=== PATIENT | female | born 1985 | race Caucasian/White ===

== ENCOUNTER 2019-10-07 16:39 | Inpatient (IN) ==
[~2019-10-07 16:39] MED LIST: *HR* FentaNYL (PF) 100 MCG/2 ML VIAL ONE; *HR* Morphine Sulfate/PF 10 MG/10 ML AMPUL ONE; *HR* OxyCODONE/APAP 5/325 TABLET PO PRN; *HR* Oxytocin 10 UNIT/ML VIAL IM ONE; *HR* Phenylephrine 10 MG/ML VIAL ONE; CeFAZolin 2,000 MG/50 ML BAG IVPB ONE; EPHEDrine 50 MG/ML VIAL ONE; Famotidine 20 MG/2 ML VIAL IVP ONE; Ibuprofen 400 MG TABLET PO PRN; Metoclopramide 10 MG/2 ML VIAL IVP ONE; Morphine Sulfate 2 MG/ML SYRINGE IVP PRN; Naloxone 0.4 MG/ML INJ IVP PRN; Ondansetron 4 MG/2 ML VIAL IVP PRN; Ondansetron 4 MG/2 ML VIAL ONE; Oxytocin 20 units/ LR 1000 mL 20 UNIT/1,000 ML BAG IVC ONE; Ringers Solution, Lactated 1,000 ML IVC ONE; Ringers Solution, Lactated 1,000 ML IVC SCH
[2019-10-07] MEDS: Oxytocin 20 units/ LR 1000 mL 20 UNIT/1,000 ML BAG IVC SCH ×2 (16:41→20:00)
[2019-10-07] MEDS ORDERED: *HR* HYDROmorphone (PF) 1 MG/ML SYRINGE IVP PRN (16:58)
[2019-10-07] MEDS ORDERED: Acetaminophen IV 1,000 MG/100 ML INFUS..BTL IVPB ONE (17:02)
[2019-10-07 17:36] LABS: Basophils % 0.1 %; Eosinophils # 0.1 K/mcL (0.0-0.6); Eosinophils % 0.6 %; Hematocrit 33.9 % (35.3-44.9); Hemoglobin 11.5 g/dL (11.5-15.4); Immature Granulocytes % 0.8 % (0-4); Lymphocytes % 11.1 %; Mean Corpuscular HGB Conc 33.9 g/dL (31.6-35.5); Mean Corpuscular Hemoglobin 32.5 pg (28.0-33.3); Mean Corpuscular Volume 95.8 fL (83.0-100.0); Mean Platelet Volume 10.7 fL (9.4-12.4); Monocytes # 0.8 K/mcL (0.0-1.3); Monocytes % 8.7 %; Neutrophils # 6.8 K/mcL (1.6-8.9); Platelet Count 269 K/mcL (140-400); Red Blood Count 3.54 M/mcL (3.82-4.97); Red Cell Distribution Width 14.2 % (11.5-14.5); Segmented Neutrophils % 78.7 %; White Blood Count 8.6 K/mcL (4.3-11.1)
[2019-10-07] MEDS ORDERED: Naloxone 0.4 MG/ML INJ IVP PRN (21:40)
[2019-10-07] MEDS ORDERED: Rho Immune Globulin 1,500 UNIT SYRINGE IM ONE (21:40)
[2019-10-07] MEDS ORDERED: Ringers Solution, Lactated 1,000 ML IVC SCH (21:40)
[2019-10-07] MEDS ORDERED: Metoclopramide 10 MG/2 ML VIAL IVP PRN (21:40)
[2019-10-07] MEDS ORDERED: Sennosides 8.6 MG TABLET PO PRN (21:40)
[2019-10-07] MEDS ORDERED: Ondansetron 4 MG/2 ML VIAL IVP PRN (21:40)
[2019-10-07] MEDS ORDERED: Oxytocin 20 units/ LR 1000 mL 20 UNIT/1,000 ML BAG IVC SCH ×2 (21:40)
[2019-10-07] MEDS ORDERED: Simethicone 80 MG TAB.CHEW PO PRN (21:40)
[2019-10-07 21:56] LABS: Amphetamine Screen,Urine Negative ng/mL (Cutoff=1000); Barbiturate Screen,Urine Negative ng/mL (Cutoff=200); Benzodiazepines Screen,Urine Negative ng/mL (Cutoff=200); Cannabinoid Screen,Urine Negative ng/mL (Cutoff = 50); Cocaine Screen,Urine Negative ng/mL (Cutoff= 300); Opiate Screen,Urine Negative ng/mL (Cutoff=300); Phencyclidine Screen,Urine Negative ng/mL (Cutoff=25)
[2019-10-07] MEDS: *HR* OxyCODONE/APAP 5/325 TABLET PO PRN (22:23)
[2019-10-07] MEDS: Ibuprofen 600 MG TABLET PO PRN (22:24)
[2019-10-07] MEDS: cephALEXin 500 MG CAPSULE PO SCH (22:29)
[2019-10-08] MEDS: *HR* OxyCODONE/APAP 5/325 TABLET PO PRN ×4 (02:19→18:01)
[2019-10-08] MEDS: Ibuprofen 600 MG TABLET PO PRN ×3 (05:13→20:48)
[2019-10-08 06:55] LABS: Basophils % 0.2 %; Eosinophils % 0.3 %; Hematocrit 21.5 % (35.3-44.9); Immature Granulocytes % 0.7 % (0-4); Mean Corpuscular HGB Conc 33.5 g/dL (31.6-35.5); Mean Corpuscular Volume 95.6 fL (83.0-100.0); Mean Platelet Volume 10.5 fL (9.4-12.4); Monocytes # 0.8 K/mcL (0.0-1.3); Monocytes % 7.8 %; Neutrophils # 8.3 K/mcL (1.6-8.9); Platelet Count 239 K/mcL (140-400); Red Blood Count 2.25 M/mcL (3.82-4.97); White Blood Count 10.2 K/mcL (4.3-11.1)
[2019-10-08 07:00] LABS: Hemoglobin 7.2 g/dL (11.5-15.4)
[2019-10-08] MEDS: cephALEXin 500 MG CAPSULE PO SCH ×3 (09:05→20:40)
[2019-10-08] MEDS: Prenatal Vit/FA 1 EACH TABLET PO SCH (09:05)
[2019-10-08] MEDS: metroNIDAZOLE 500 MG TABLET PO SCH ×2 (09:05→20:41)
[2019-10-08] MEDS ORDERED: Rho Immune Globulin 1,500 UNIT SYRINGE IM ONE (20:35)
[2019-10-09] MEDS: *HR* OxyCODONE/APAP 5/325 TABLET PO PRN ×5 (01:08→21:44)
[2019-10-09] MEDS: Ibuprofen 600 MG TABLET PO PRN ×3 (05:24→18:47)
[2019-10-09] MEDS: metroNIDAZOLE 500 MG TABLET PO SCH ×2 (07:32→13:26)
[2019-10-09] MEDS: Prenatal Vit/FA 1 EACH TABLET PO SCH (07:32)
[2019-10-09] MEDS: cephALEXin 500 MG CAPSULE PO SCH ×2 (07:32→13:25)
[2019-10-09 07:54] LABS: Basophils % 0.1 %; Mean Corpuscular HGB Conc 32.5 g/dL (31.6-35.5); Mean Platelet Volume 10.1 fL (9.4-12.4); Red Cell Distribution Width 14.3 % (11.5-14.5)
[2019-10-09 07:56] LABS: Eosinophils # 0.1 K/mcL (0.0-0.6); Eosinophils % 1.1 %; Hematocrit 16.9 % (35.3-44.9); Immature Granulocytes % 1.2 % (0-4); Lymphocytes # 1.2 K/mcL (0.6-4.6); Mean Corpuscular Hemoglobin 31.8 pg (28.0-33.3); Mean Corpuscular Volume 97.7 fL (83.0-100.0); Monocytes # 0.7 K/mcL (0.0-1.3); Monocytes % 7.9 %; Neutrophils # 6.4 K/mcL (1.6-8.9); Platelet Count 224 K/mcL (140-400); Red Blood Count 1.73 M/mcL (3.82-4.97); Segmented Neutrophils % 75.7 %; White Blood Count 8.5 K/mcL (4.3-11.1)
[2019-10-09 08:03] LABS: Hemoglobin 5.5 g/dL (11.5-15.4)
[2019-10-09] MEDS ORDERED: Isovue-370 500 ML BOTTLE IVP ONE (08:09)
[2019-10-09 08:50] LABS: Platelet Estimate Normal (Normal)
[2019-10-09 09:19] LABS: eGFR For African Americans > 60 (> 60); eGFR For Non-African Americans > 60 (> 60)
[2019-10-09] MEDS ORDERED: 0.9 % Sodium Chloride 500 ML ONE (11:27)
[2019-10-09] MEDS ORDERED: 0.9 % Sodium Chloride 1,000 ML ONE (16:47)
[2019-10-09 22:16] LABS: Basophils % 0.1 %; Eosinophils # 0.1 K/mcL (0.0-0.6); Hemoglobin 9.4 g/dL (11.5-15.4); Immature Granulocytes % 1.8 % (0-4); Lymphocytes # 1.1 K/mcL (0.6-4.6); Lymphocytes % 10.5 %; Mean Corpuscular HGB Conc 34.8 g/dL (31.6-35.5); Mean Corpuscular Hemoglobin 31.4 pg (28.0-33.3); Mean Corpuscular Volume 90.3 fL (83.0-100.0); Mean Platelet Volume 9.8 fL (9.4-12.4); Monocytes # 0.8 K/mcL (0.0-1.3); Monocytes % 7.7 %; Neutrophils # 8.3 K/mcL (1.6-8.9); Platelet Count 255 K/mcL (140-400); Red Blood Count 2.99 M/mcL (3.82-4.97); Segmented Neutrophils % 78.9 %; White Blood Count 10.6 K/mcL (4.3-11.1)
[2019-10-10] MEDS: *HR* OxyCODONE/APAP 5/325 TABLET PO PRN ×2 (02:35→09:50)
[2019-10-10] MEDS: Ibuprofen 600 MG TABLET PO PRN ×2 (02:35→09:49)
[2019-10-10] MEDS ORDERED: metroNIDAZOLE 500 MG TABLET PO SCH (02:45)
[2019-10-10] MEDS: metroNIDAZOLE 500 MG TABLET PO SCH (02:50)
[2019-10-10 08:22] VITALS: BP 110/69
[2019-10-10] MEDS: Prenatal Vit/FA 1 EACH TABLET PO SCH (09:48)
== END 2019-10-10 14:30 | disposition home or self-care (01) | DRG 539 ==
LOC: 1NENULAB → 1NENUOBS 21:37
PROVIDERS: ADMIT Advanced Practice Midwife; ATTEND Advanced Practice Midwife